=== PATIENT | male | born 1995 | race Caucasian/White ===

== ENCOUNTER 2017-07-15 08:22 | Emergency (ER) | payer OTHER ==
[~2017-07-15] VITALS: Ht 177.8 cm; Wt 88.2 kg
[2017-07-15 08:27] VITALS: BP 128/97
[2017-07-15] MEDS ORDERED: PREDNISONE20 MG PO (10:29)
[2017-07-15] MEDS ORDERED: VENTOLIN HFA18 GM IH (10:29)
== END 2017-07-15 10:37 | disposition home or self-care (01) ==
LOC: EME 08:22
DX: J06.9 Acute upper respiratory infection, unspecified (principal); J45.901 Unspecified asthma with (acute) exacerbation; F17.200 Nicotine dependence, unspecified, uncomplicated; Z71.6 Tobacco abuse counseling
CPT/HCPCS: 71020; 94640; 94640 76; 99281; 99284; J7512

== ENCOUNTER 2017-11-26 07:03 | Emergency (ER) | payer OTHER ==
[~2017-11-26] VITALS: Ht 177.8 cm; Wt 87.9 kg
[~2017-11-26 07:03] MED LIST: PREDNISONE20 MG PO; VENTOLIN HFA18 GM IH
[2017-11-26 07:49] LABS: HEMATOCRIT 44.9 % (38.0-50.0); HEMOGLOBIN 15.8 G/DL (12.5-16.6); MCH 29.3 PG (29.0-34.0); MCHC 35.2 G/DL (30.0-36.0); MCV 83.3 FL (86-99); PLATELET COUNT 310 K/uL (156-360); RBC DIS.WIDTH-CV 12.8 % (11.8-14.6); RBC DIS.WIDTH-SD 38.9 % (39-53); RED BLOOD COUNT 5.39 M/uL (4.00-5.50); WHITE BLOOD COUNT 10.7 K/uL (4.1-10.2)
[2017-11-26 07:53] LABS: BILIRUBIN NEGATIVE; BLOOD NEGATIVE; COLOR YELLOW ((YELLOW)); GLUCOSE (STRIP) NEGATIVE; KETONES 20; LEUKOCYTES NEGATIVE; NITRITE NEGATIVE; PROTEIN (STRIP) 30; SPECIFIC GRAVITY 1.028 (1.000-1.030)
[2017-11-26 07:54] LABS: APPEARANCE CLEAR ((CLEAR))
[2017-11-26 07:57] LABS: ALBUMIN 4.7 g/dL (3.2-4.8)
[2017-11-26 07:58] LABS: CHLORIDE 104 mEq/L (99-109); POTASSIUM 4.3 mEq/L (3.7-5.4); SODIUM 140 mEq/L (136-147)
[2017-11-26 08:00] LABS: GLUCOSE 120 mg/dL (70-99)
[2017-11-26 08:02] LABS: TOTAL BILIRUBIN 0.7 mg/dL (0.0-1.0)
[2017-11-26 08:03] LABS: ALKALINE PHOSPHATASE 82 IU/L (3-129)
[2017-11-26 08:04] LABS: GFR ESTIMATE (CALCULATED) > 59 mL/min/ (58.99-99999)
[2017-11-26 08:05] LABS: AST (GOT) 24 IU/L (2-34); UREA NITROGEN (BUN) 14 mg/dL (9-23)
[2017-11-26 08:06] LABS: ALT (GPT) 25 IU/L (3-49)
[2017-11-26 08:07] LABS: LIPASE 45 U/L (1.0-51.0)
[2017-11-26] MEDS ORDERED: BENTYL20 MG PO (10:52)
[2017-11-26] MEDS ORDERED: PHENERGAN25 MG PR (10:52)
[2017-11-26 12:26] VITALS: BP 134/72
== END 2017-11-26 12:28 | disposition home or self-care (01) ==
LOC: EME 07:03
PROVIDERS: Physician Assistant
DX: K52.9 Noninfective gastroenteritis and colitis, unspecified (principal); R10.13 Epigastric pain; F17.200 Nicotine dependence, unspecified, uncomplicated; Z88.6 Allergy status to analgesic agent
CPT/HCPCS: 74177; 80053; 81003; 83690; 85027; 99281; 99285; J0780; J1200; J1885; J2405; J7040; J7050

== ENCOUNTER 2018-02-18 17:59 | Emergency (ER) | payer OTHER ==
[~2018-02-18] VITALS: Ht 177.8 cm; Wt 85.0 kg
[~2018-02-18 17:59] MED LIST changes: +BENTYL20 MG PO; +PHENERGAN25 MG PR
[2018-02-18 19:51] VITALS: BP 128/64
== END 2018-02-18 19:53 | disposition home or self-care (01) ==
LOC: EME 17:59
DX: T40.1X1A Poisoning by heroin, accidental (unintentional), initial encounter (principal); F17.200 Nicotine dependence, unspecified, uncomplicated; Z88.6 Allergy status to analgesic agent
CPT/HCPCS: 99281; 99285